=== PATIENT | female | born 1955 | race Caucasian/White ===

== ENCOUNTER → 2017-04-11 | Outpatient (CLI) | payer OTHER ==
[2017-04-11 19:51] LABS: ANION GAP 4 MEQ/L (8-16); BLOOD UREA NITROGEN 16 MG/DL (7-18); CALCIUM LEVEL 8.1 MG/DL (8.8-10.2); CARBON DIOXIDE LEVEL 28 MEQ/L (21-32); CHLORIDE LEVEL 110 MEQ/L (98-107); GLOMERULAR FILTRATION RATE > 60.0 (>45); GLUCOSE, FASTING 88 MG/DL (80-110); POTASSIUM SERUM 4.3 MEQ/L (3.5-5.1); SODIUM LEVEL 142 MEQ/L (136-145)
== END ==
LOC: M WUC 17:55
PROVIDERS: ATTEND Internal Medicine Endocrinology, Diabetes & Metabolism
DX: M81.0 Age-related osteoporosis without current pathological fracture (principal)

== ENCOUNTER → 2017-04-13 | Outpatient (CLI) | payer OTHER ==
[2017-04-13 20:07] LABS: IONIZED CALCIUM 4.8 MG/DL (4.5-5.3)
[2017-04-13 20:24] LABS: ALBUMIN 3.7 GM/DL (3.2-5.2); CALCIUM LEVEL 8.6 MG/DL (8.8-10.2)
== END ==
LOC: M WUC 16:54
PROVIDERS: ATTEND Internal Medicine Endocrinology, Diabetes & Metabolism
DX: M85.89 Other specified disorders of bone density and structure, multiple sites (principal)

== ENCOUNTER → 2017-04-23 | Outpatient (CLI) | payer OTHER | LOC: M WUC 16:57 | PROVIDERS: ATTEND Internal Medicine Endocrinology, Diabetes & Metabolism | DX: E83.51 Hypocalcemia (principal); M85.89 Other specified disorders of bone density and structure, multiple sites ==

== ENCOUNTER → 2017-07-29 | Outpatient (CLI) | payer OTHER ==
[2017-07-29 17:55] LABS: BASO % 0.2 % (0.0-1.0); EOS # 0.1 K/mm3 (0.0-0.50); EOS % 1.4 % (0.0-3.0); LARGE UNSTAINED CELL # 0.1 K/mm3 (0.0-0.4); LARGE UNSTAINED CELL % 1.4 % (0.0-4.0); LYMPH # 0.9 K/mm3 (1.5-4.5); LYMPH % 15.4 % (24.0-44.0); MEAN CORPUSCULAR HEMOGLOBIN 31.2 pg (27.0-33.0); MEAN CORPUSCULAR HGB CONC 33.8 g/dl (32.0-36.5); MEAN CORPUSCULAR VOLUME 92.2 fl (80.0-96.0); MONO # 0.3 K/mm3 (0.0-0.8); MONO % 5.3 % (0.0-5.0); NEUTROPHILS # 4.5 K/mm3 (1.8-7.7); NEUTROPHILS % 76.3 % (36.0-66.0); PLATELET COUNT, AUTOMATED 379 k/mm3 (150-450); RED CELL DISTRIBUTION WIDTH 12.4 % (11.5-14.5); WHITE BLOOD COUNT 5.9 K/mm3 (4.0-10.0)
[2017-07-29 18:23] LABS: ALBUMIN 3.5 GM/DL (3.2-5.2); ALBUMIN/GLOBULIN RATIO 1.13 (1.00-1.93); ALKALINE PHOSPHATASE 73 U/L (45-117); ALT/SGPT 43 U/L (12-78); ANION GAP 8 MEQ/L (8-16); AST/SGOT 32 U/L (15-37); BILIRUBIN,TOTAL 0.3 MG/DL (0.2-1.0); BLOOD UREA NITROGEN 18 MG/DL (7-18); CALCIUM LEVEL 7.3 MG/DL (8.8-10.2); CARBON DIOXIDE LEVEL 25 MEQ/L (21-32); CHLORIDE LEVEL 108 MEQ/L (98-107); CHOLESTEROL LEVEL 144 MG/DL (<200); CREATININE FOR GFR 0.82 MG/DL (0.55-1.02); GLOMERULAR FILTRATION RATE > 60.0 (>45); GLUCOSE, FASTING 86 MG/DL (80-110); SODIUM LEVEL 141 MEQ/L (136-145); TOTAL PROTEIN 6.6 GM/DL (6.4-8.2); TRIGLYCERIDES LEVEL 64 MG/DL (<150)
[2017-07-29 18:30] LABS: POTASSIUM SERUM 5.2 MEQ/L (3.5-5.1)
== END ==
LOC: M WUC 10:31
PROVIDERS: ATTEND Family Medicine
DX: E78.2 Mixed hyperlipidemia (principal)

== ENCOUNTER → 2018-02-09 | Outpatient (CLI) | payer OTHER ==
[2018-02-09 18:55] LABS: ANION GAP 7 MEQ/L (8-16); BLOOD UREA NITROGEN 17 MG/DL (7-18); CALCIUM LEVEL 8.2 MG/DL (8.8-10.2); CARBON DIOXIDE LEVEL 27 MEQ/L (21-32); CHLORIDE LEVEL 109 MEQ/L (98-107); CREATININE FOR GFR 0.82 MG/DL (0.55-1.30); GLOMERULAR FILTRATION RATE > 60.0 (>45); GLUCOSE, FASTING 67 MG/DL (70-100); POTASSIUM SERUM 4.2 MEQ/L (3.5-5.1); SODIUM LEVEL 143 MEQ/L (136-145)
== END ==
LOC: M WUC 13:17
DX: L65.9 Nonscarring hair loss, unspecified (principal)
CPT/HCPCS: 80048

== ENCOUNTER 2018-02-22 19:48 | Emergency (ER) | payer OTHER ==
[2018-02-22 21:39] LABS: D-DIMER QUANT 933.4 ng/ml (<500)
[2018-02-22] MEDS: NAPROXEN 250 MG TAB PO (21:47)
[2018-02-22 21:50] LABS: ANION GAP 7 MEQ/L (8-16); BLOOD UREA NITROGEN 10 MG/DL (7-18); CALCIUM LEVEL 7.8 MG/DL (8.8-10.2); CARBON DIOXIDE LEVEL 28 MEQ/L (21-32); CHLORIDE LEVEL 108 MEQ/L (98-107); CPK CREATINE PHOSPHOKINASE 132 U/L (26-192); CREATININE FOR GFR 0.68 MG/DL (0.55-1.30); GLOMERULAR FILTRATION RATE > 60.0 (>45); GLUCOSE, FASTING 92 MG/DL (70-100); POTASSIUM SERUM 3.8 MEQ/L (3.5-5.1); SODIUM LEVEL 143 MEQ/L (136-145); TROPONIN I < 0.02 NG/ML (< 0.10)
[2018-02-22 21:51] LABS: CK-MB VALUE MASS 1.7 NG/ML (<3.6); MB/CK RELATIVE INDEX 1.28 (< OR =4)
[2018-02-22 22:19] LABS: BASO % 0.3 % (0.0-1.0); EOS # 0.1 10^3/uL (0.0-0.50); EOS % 1.9 % (0.0-3.0); HEMATOCRIT 40.1 % (36.0-47.0); HEMOGLOBIN 13.2 g/dl (12.0-15.5); IMMATURE GRANULOCYTE % 0.2 % (0-3.0); LYMPH # 0.9 10^3/uL (1.5-4.5); LYMPH % 14.1 % (24.0-44.0); MEAN CORPUSCULAR HEMOGLOBIN 30.3 pg (27.0-33.0); MEAN CORPUSCULAR HGB CONC 32.9 g/dl (32.0-36.5); MONO # 0.6 10^3/uL (0.0-0.8); MONO % 9.6 % (0.0-5.0); NEUTROPHILS # 4.7 10^3/uL (1.8-7.7); NEUTROPHILS % 73.9 % (36.0-66.0); PLATELET COUNT, AUTOMATED 335 10^3/uL (150-450); RED BLOOD COUNT 4.36 10^6/uL (4.00-5.40); RED CELL DISTRIBUTION WIDTH 13.3 % (11.5-14.5); WHITE BLOOD COUNT 6.3 10^3/uL (4.0-10.0)
[2018-02-22] MEDS ORDERED: ISOVUE-370 76% 100ML VIAL (Q9967) As Ordered (22:19)
[2018-02-22] MEDS: NS 1,000 ML IV (23:34)
== END 2018-02-23 01:06 | disposition home or self-care (01) ==
LOC: M ED 02-23 01:06
DX: M54.6 Pain in thoracic spine (principal); M62.838 Other muscle spasm; H26.9 Unspecified cataract; K76.89 Other specified diseases of liver; Z79.899 Other long term (current) drug therapy
CPT/HCPCS: Q9967

== ENCOUNTER → 2018-04-20 | Outpatient (CLI) | payer OTHER ==
[2018-04-20 18:11] LABS: ANION GAP 6 MEQ/L (8-16); BLOOD UREA NITROGEN 10 MG/DL (7-18); CALCIUM LEVEL 7.8 MG/DL (8.8-10.2); CARBON DIOXIDE LEVEL 28 MEQ/L (21-32); CHLORIDE LEVEL 111 MEQ/L (98-107); CREATININE FOR GFR 0.77 MG/DL (0.55-1.30); GLOMERULAR FILTRATION RATE > 60.0 (>45); GLUCOSE, FASTING 116 MG/DL (70-100); POTASSIUM SERUM 4.3 MEQ/L (3.5-5.1); SODIUM LEVEL 145 MEQ/L (136-145)
[2018-04-22 10:05] LABS: TOTAL 25(OH) VITAMIN D 31.9 NG/ML (30.0-100.0)
== END ==
LOC: M WUC 11:27
DX: M85.89 Other specified disorders of bone density and structure, multiple sites (principal); E83.51 Hypocalcemia
CPT/HCPCS: 82306

== ENCOUNTER → 2018-04-25 | Outpatient (CLI) | payer OTHER ==
[2018-04-25 12:57] LABS: ANION GAP 7 MEQ/L (8-16); BLOOD UREA NITROGEN 14 MG/DL (7-18); CALCIUM LEVEL 8.4 MG/DL (8.8-10.2); CARBON DIOXIDE LEVEL 29 MEQ/L (21-32); CHLORIDE LEVEL 108 MEQ/L (98-107); CREATININE FOR GFR 0.74 MG/DL (0.55-1.30); GLOMERULAR FILTRATION RATE > 60.0 (>45); GLUCOSE, FASTING 87 MG/DL (70-100); POTASSIUM SERUM 4.3 MEQ/L (3.5-5.1); SODIUM LEVEL 144 MEQ/L (136-145)
[2018-04-25 13:04] LABS: TOTAL 25(OH) VITAMIN D 34.5 NG/ML (30.0-100.0)
== END ==
LOC: M WUC 08:58
DX: E83.51 Hypocalcemia (principal); M85.89 Other specified disorders of bone density and structure, multiple sites
CPT/HCPCS: 82306

== ENCOUNTER → 2018-05-07 | Outpatient (CLI) | payer OTHER ==
[2018-05-07 12:27] LABS: PTH INTACT 81.4 PG/ML (18.5-88.0); TOTAL 25(OH) VITAMIN D 40.6 NG/ML (30.0-100.0)
[2018-05-07 12:35] LABS: ANION GAP 8 MEQ/L (8-16); BLOOD UREA NITROGEN 12 MG/DL (7-18); CALCIUM LEVEL 8.1 MG/DL (8.8-10.2); CARBON DIOXIDE LEVEL 27 MEQ/L (21-32); CHLORIDE LEVEL 111 MEQ/L (98-107); CREATININE FOR GFR 0.71 MG/DL (0.55-1.30); GLOMERULAR FILTRATION RATE > 60.0 (>45); GLUCOSE, FASTING 79 MG/DL (70-100); POTASSIUM SERUM 4.2 MEQ/L (3.5-5.1); SODIUM LEVEL 146 MEQ/L (136-145)
[2018-05-09 08:48] LABS: ALBUMIN 3.5 GM/DL (3.2-5.2)
== END ==
LOC: M WUC 08:29
DX: E83.51 Hypocalcemia (principal); M85.89 Other specified disorders of bone density and structure, multiple sites
CPT/HCPCS: 82040

== ENCOUNTER → 2018-07-31 | Outpatient (CLI) | payer OTHER ==
[2018-07-31 13:06] LABS: BASO % 0.4 % (0.0-1.0); EOS # 0.1 10^3/uL (0.0-0.50); EOS % 2.4 % (0.0-3.0); HEMOGLOBIN 12.7 g/dl (12.0-15.5); IMMATURE GRANULOCYTE % 0.2 % (0-3.0); LYMPH # 0.8 10^3/uL (1.5-4.5); MEAN CORPUSCULAR HEMOGLOBIN 29.9 pg (27.0-33.0); MEAN CORPUSCULAR HGB CONC 33.4 g/dl (32.0-36.5); MEAN CORPUSCULAR VOLUME 89.4 fl (80.0-96.0); MONO # 0.5 10^3/uL (0.0-0.8); MONO % 10.2 % (0.0-5.0); NEUTROPHILS # 3.2 10^3/uL (1.8-7.7); NEUTROPHILS % 68.8 % (36.0-66.0); PLATELET COUNT, AUTOMATED 311 10^3/uL (150-450); RED BLOOD COUNT 4.25 10^6/uL (4.00-5.40); RED CELL DISTRIBUTION WIDTH 13.4 % (11.5-14.5); WHITE BLOOD COUNT 4.6 10^3/uL (4.0-10.0)
[2018-07-31 15:15] LABS: CHOLESTEROL LEVEL 173 MG/DL (<200); CHOLESTEROL RISK RATIO 5.088 (<5); FREE T4 1.18 NG/DL (0.76-1.46); HDL CHOLESTEROL 34 MG/DL (>40); LDL CHOLESTEROL 121 MG/DL (<100); NON-HDL-C 139 MG/DL; TRIGLYCERIDES LEVEL 89 MG/DL (<150)
== END ==
LOC: M WUC 09:01
DX: E06.3 Autoimmune thyroiditis (principal); D64.9 Anemia, unspecified; E78.2 Mixed hyperlipidemia
CPT/HCPCS: 84443

== ENCOUNTER → 2019-01-03 | Outpatient (CLI) | payer OTHER ==
[~2019-01-03] MED LIST: ASCO25TA PO; BUPR150T3 PO; CENT1TAB19 PO; FEOS45TA3 PO; NAPR-50 PO; OMEG100011 PO; OSCA200T PO; RALO1TAB PO; VITA-182 PO
[2019-01-03 12:38] LABS: HEMATOCRIT 40.3 % (36.0-47.0); MEAN CORPUSCULAR HEMOGLOBIN 29.2 pg (27.0-33.0); MEAN CORPUSCULAR HGB CONC 32.3 g/dl (32.0-36.5); MEAN CORPUSCULAR VOLUME 90.6 fl (80.0-96.0); PLATELET COUNT, AUTOMATED 299 10^3/uL (150-450); RED BLOOD COUNT 4.45 10^6/uL (4.00-5.40); WHITE BLOOD COUNT 6.7 10^3/uL (4.0-10.0)
[2019-01-03 13:17] LABS: ALBUMIN 3.5 GM/DL (3.2-5.2); ALT/SGPT 41 U/L (12-78); BILIRUBIN,TOTAL 0.3 MG/DL (0.2-1.0); BLOOD UREA NITROGEN 16 MG/DL (7-18); CALCIUM LEVEL 7.8 MG/DL (8.8-10.2); CARBON DIOXIDE LEVEL 25 MEQ/L (21-32); CHLORIDE LEVEL 108 MEQ/L (98-107); CHOLESTEROL LEVEL 169 MG/DL (<200); CHOLESTEROL RISK RATIO 4.828 (<5); GLOMERULAR FILTRATION RATE > 60.0 (>45); GLUCOSE, FASTING 91 MG/DL (70-100); HDL CHOLESTEROL 35 MG/DL (>40); LDL CHOLESTEROL 120 MG/DL (<100); NON-HDL-C 134 MG/DL; POTASSIUM SERUM 4.6 MEQ/L (3.5-5.1); SODIUM LEVEL 141 MEQ/L (136-145); TOTAL 25(OH) VITAMIN D 64.9 NG/ML (30.0-100.0); TOTAL PROTEIN 6.7 GM/DL (6.4-8.2); TRIGLYCERIDES LEVEL 72 MG/DL (<150)
== END ==
LOC: M WUC 08:29
PROVIDERS: ATTEND Nurse Practitioner Family
DX: E03.8 Other specified hypothyroidism (principal); E78.5 Hyperlipidemia, unspecified; E55.9 Vitamin D deficiency, unspecified

== ENCOUNTER → 2020-10-12 | Outpatient (CLI) | payer OTHER ==
[~2020-10-12] MED LIST changes: +ASCO250T20 PO; -ASCO25TA PO; -NAPR-50 PO; +NAPR-837 PO
== END ==
LOC: M LABCAHC 12:50
PROVIDERS: ATTEND Pediatrics
DX: Z11.59 Encounter for screening for other viral diseases (principal)

== ENCOUNTER → 2021-05-16 | Outpatient (CLI) | payer MEDICARE, OTHER ==
[~2021-05-16] MED LIST changes: +BUPR150T12 PO; -BUPR150T3 PO
== END ==
LOC: M WHC 07:44
PROVIDERS: ATTEND Internal Medicine Endocrinology, Diabetes & Metabolism
DX: M81.0 Age-related osteoporosis without current pathological fracture (principal)

== ENCOUNTER → 2023-05-23 | Outpatient (CLI) | payer MEDICARE, OTHER | LOC: M WHC 08:10 | PROVIDERS: ATTEND Family Medicine | DX: M85.89 Other specified disorders of bone density and structure, multiple sites (principal) ==

== ENCOUNTER 2024-12-31 09:51 | Day surgery (SDC) | payer MEDICARE, OTHER ==
[~2024-12-31] VITALS: Ht 160 cm; Wt 54.1 kg
[~2024-12-31 09:51] MED LIST changes: +ALEN70TA82 PO; +ALLE180T33 PO; +CELE50CA17 PO; +FERR1TAB8 PO; +FLON1SPR; +LIDOCAINE 2% 100MG/5ML SDV (FOR ANES.) As Ordered ONE; +OMEG10002 PO; +PANT20TA6 PO; +ROPI5TAB19 PO; +SENN1TAB85 PO; +SYNT112T2 PO; +THERTAB52 PO; +TURM500T PO; +[UNRECOGNIZED DRUG - CODE] EX; +[UNRECOGNIZED DRUG - OTHER] PO; +[UNRECOGNIZED DRUG - REMARK] IMPLANT; +citracal PO; +propofoL 200 MG/20 ML VIAL As Ordered ONE
[2024-12-31] MEDS ORDERED: fentaNYL 100 MCG/2 ML INJECTION As Ordered ONE (10:54)
[2024-12-31 11:15] VITALS: TEMP 97.1
[2024-12-31 11:42] VITALS: BP 127/63; O2SAT 96
== END 2024-12-31 11:47 | disposition home or self-care (01) ==
LOC: M OPP 09:51
PROVIDERS: ATTEND Internal Medicine Gastroenterology
DX: K29.80 Duodenitis without bleeding (principal); K29.50 Unspecified chronic gastritis without bleeding; K31.89 Other diseases of stomach and duodenum; E03.9 Hypothyroidism, unspecified; K21.9 Gastro-esophageal reflux disease without esophagitis; M19.90 Unspecified osteoarthritis, unspecified site; F32.A Depression, unspecified; Z91.048 Other nonmedicinal substance allergy status; Z79.51 Long term (current) use of inhaled steroids; Z79.890 Hormone replacement therapy; Z79.899 Other long term (current) drug therapy
CPT/HCPCS: 43239; 88305; J3010

== ENCOUNTER → 2025-01-21 | Outpatient (CLI) | payer MEDICARE, OTHER ==
[~2025-01-21] MED LIST changes: +LIDOCAINE 1% MDV 20ML VIAL As Ordered ONE; -LIDOCAINE 2% 100MG/5ML SDV (FOR ANES.) As Ordered ONE; -propofoL 200 MG/20 ML VIAL As Ordered ONE
[2025-01-21 14:52] LABS: SOURCE, BODY FLUID RT HIP
[2025-01-21 14:53] LABS: SYNOVIAL FLUID COLOR ORANGE (COLORLESS)
[2025-01-21 14:54] LABS: SOURCE, BODY FLUID GLUCOSE HIP RIGHT
[2025-01-21 15:08] LABS: CRYSTALS, BODY FLUID NONE SEEN (NONE SEEN); SOURCE, BODY FLUID CRYSTALS RIGHT HIP
== END ==
LOC: M RAD 13:52
PROVIDERS: ATTEND Physician Assistant Surgical
DX: M25.451 Effusion, right hip (principal); M16.11 Unilateral primary osteoarthritis, right hip

== ENCOUNTER → 2025-05-25 | Outpatient (CLI) | payer MEDICARE, OTHER ==
[~2025-05-25] MED LIST changes: -LIDOCAINE 1% MDV 20ML VIAL As Ordered ONE
== END ==
LOC: M WHC 09:00
PROVIDERS: ATTEND Family Medicine
DX: M85.852 Other specified disorders of bone density and structure, left thigh (principal)